=== PATIENT | female | born 1945 | race Caucasian/White ===

== ENCOUNTER → 2017-07-22 | Day surgery (SDC) | payer MEDICARE ==
[~2017-07-22] VITALS: Ht 165.1 cm; Wt 74.8 kg
[~2017-07-22] MED LIST: 0.9% Sodium Chloride 1,000 ML IV SCH; CHOL400T PO; EPIN0.3P2 IJ; IMI100 PO; MINO100C3 PO; OMEG500C PO; Sodium Chloride LOK Flush 10 mL Syringe IV PRN; TRAM50TA2 PO; TRAZ-115 PO; fentaNYL-PF 50 mCg/mL 2 mL Inj IVPUSH PRN
[2017-07-22 12:04] VITALS: BP 123/62; PULSE 64; RESP 16; O2SAT 99
[2017-07-22 12:14] VITALS: BP 118/60; PULSE 64; RESP 16; O2SAT 97
[2017-07-22 12:23] VITALS: BP 118/63; PULSE 59; RESP 16; O2SAT 100
[2017-07-22 12:34] VITALS: BP 134/66; PULSE 62; RESP 16; O2SAT 100
--- NOTE | 2017-07-22 12:35 | ENDO ---
[address] [address] ENDOSCOPY PROCEDURE PATIENT: CHIQUI BROWN : 1945 MR#: [id number] ADMIT: 07/22/2017 JOB ID: [id number] DATE OF SERVICE: 07/22/2017 PROCEDURE: Colonoscopy. INDICATIONS: The patient's Mallampati score is 2. MEDICATIONS: Versed at 4 mg, fentanyl 100 mcg. INSTRUMENT USED: PCFH-180AL PREPARATION QUALITY: Fair. PROCEDURE DETAILS: After informed consent was obtained, the patient was brought to the GI suite, where she was placed on oxygen via nasal cannula and monitored with continuous pulse oximeter, telemetry, and blood pressure monitoring. A time-out was performed. Then, she was placed in a left lateral decubitus position. Medications were administered for sedation. Digital rectal exam was performed, which revealed poor rectal tone. The colonoscope was then inserted into the rectum and advanced under direct visualization to the cecum, which identified by the presence of the ileocecal valve and appendiceal orifice. Once the cecum was reached, the terminal ileum was intubated, which was identified by the presence of the ileocecal valve and villous-appearing mucosa of the terminal ileum. Once the terminal ileum was reached, the colonoscope was withdrawn back into the rectum. Mucosa and lumen were examined. In the rectum, retroflexion was performed. Following retroflexion, remaining air in the rectum was suctioned, and procedure was completed. FINDINGS: 1. Normal-appearing terminal ileum. Multiple random biopsies were obtained. 2. The colon mucosa from the cecum to the sigmoid colon was normal. Multiple random biopsies were obtained. In the proximal rectum, there was a focal area that measured approximately 1-2 cm in length with erythema on the posterior wall. Multiple random biopsies were obtained. Retroflexed views in the rectum were unremarkable. IMPRESSION: Rectal erythema in the proximal rectum, posterior rectal wall. I suspect this may be secondary to prolapsing rectal mucosa that is responsible for the erythema rather than proctitis. However will await biopsy results. Pending biopsy results, may need referral to Colorectal Surgery. COMPLICATIONS: None. ESTIMATED BLOOD LOSS: Less than 5 mL
--- NOTE | 2017-07-26 15:10 | PATH ---
SURGICAL PATHOLOGY Attending Physician:Dash Vega CASE STATUS: Signed Out PATIENT NAME: CHIQUI BROWN PID: [id number] : 1945 DATE COLLECTED:07/22/2017 19:17 SPECIMEN: 1: Colon, Biopsy 2: Colon, Biopsy 3: Colon, Biopsy 4: Rectum, Biopsy 5: Ileum, Biopsy CLINICAL HISTORY: 1). RIGHT COLON BIOPSY 2). TRANSVERSE BIOPSY 3). LEFT COLON BIOPSY 4). RECTUM BIOPSY 5). TERMINAL ILEUM FINAL DIAGNOSIS: 1-3. Right, Transverse, Left Colon, Biopsies: Colonic mucosa with no significant diagnostic abnormality. Negative for active inflammation, granulomata, dysplasia or malignancy. 4. Rectum, Biopsy: Colorectal mucosa with features of prolapse. Negative for active inflammation, granulomata, dysplasia or malignancy. 5. Terminal Ileum, Biopsy: Ileal mucosa with no diagnostic abnormality. Negative for active inflammation, granulomata, dysplasia or malignancy. ICD10: R10.9 GROSS DESCRIPTION: The specimen is received in five formalin filled containers labeled with the patient's name. 1). The specimen is labeled "right colon" and consists of 5 portions of tissue which aggregate to 0.3 x 0.3 x 0.2 CM. The specimen is entirely submitted in cassette 1A. 2). The specimen is labeled "transverse colon" and consists of 4 portions of tissue which aggregate to 0.3 x 0.3 x 0.2 CM. The specimen is entirely submitted in cassette 2A. 3). The specimen is labeled "left colon" and consists of 5 portions of tissue which aggregate to 03 x 0.3 x 0.2 CM. The specimen is entirely submitted in cassette 3A. 4). The specimen is labeled "rectal" and consists of 2 extremely tiny portions of tissue which aggregate to 0.1 x 0.1 x 0.1 CM. The specimen is entirely submitted in cassette 4A. 5). The specimen is labeled "terminal ileum" and consists of a 0.2 x 0.2 x 0.2 CM portion of tissue which is entirely submitted in cassette 5A. 07/22/2017DC ICD-9 CODES: CPT CODES: 1: 25082 2: 19148 3: 66327 4: 58193 5: 29258 Electronically Signed Out J Luis Car MD, Ph.D. [facility] [address], [place] [address] Technical component performed at [facility], [address], [place], [address]
== END | disposition home or self-care (01) ==
LOC: END 01:20
PROVIDERS: ATTEND Internal Medicine Gastroenterology
DX: K62.89 Other specified diseases of anus and rectum (principal); R15.9 Full incontinence of feces; R32 Unspecified urinary incontinence; K21.9 Gastro-esophageal reflux disease without esophagitis; K58.9 Irritable bowel syndrome, unspecified; M06.9 Rheumatoid arthritis, unspecified; G47.00 Insomnia, unspecified
CPT/HCPCS: 45380; 88305; 99153; G0500; J2250; J3010; J7030